=== PATIENT | female | born 2000 | race Caucasian/White ===

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

== ENCOUNTER 2021-02-07 03:45 | Emergency (ER) | payer BC, MEDICAID, SELFPAY ==
[2021-02-07] VITALS (24 sets, daily range): BP systolic 117–150; BP diastolic 52–85; PULSE 83–100; RESP 12–31; TEMP 36.7–37; O2SAT 92–100
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
[2021-02-07 03:58] LABS: Abs Immature Grans 0.08 10^3/uL (0.0-0.06); Absolute Basophil Count 0.03 10^3/uL (0.0-0.2); Absolute Eosinophil Count 0.09 10^3/uL (0.0-0.7); Absolute Lymphocyte Count 2.34 10^3/uL (1.2-3.4); Basophils % 0.3; HCT 36.8 % (36.0-46.0); HGB 11.9 g/dL (11.2-15.7); Immature Grans % 0.9; Lymphocytes % 25.6; MCH 25.3 pg (27.0-33.0); MCHC 32.3 % (32.0-36.0); MCV 78.3 fL (80-95); MPV 9.2 fL (8.0-11.0); Monocytes % 8.8; Neutrophils % 63.4; Nucleated RBC 0 %; Platelet Count 275 10^3/uL (130-400); RDW 13.9 % (11.7-14.6); RDW-SD 39.4 fL; WBC 9.14 10^3/uL (4.4-10.8)
[2021-02-07 04:07] LABS: Bilirubin Negative (Negative); Blood Negative (Negative); Clarity Sl Cloudy (Clear); Glucose Negative (Negative); Ketones Negative (Negative); Leukocyte Esterase Negative (Negative); Nitrite Negative (Negative); Specific Gravity >= 1.030 (1.005-1.025); Urobilinogen 0.2 EU/dL (Up TO 0.2); pH 5.5 (5-8)
[2021-02-07] MEDS: Lactated Ringers 1,000 ML 150 ML IV (04:10)
[2021-02-07 04:13] LABS: ALT 28 U/L (14-59); AST 24 U/L (15-37); Albumin 3.9 g/dL (3.4-5.0); Alkaline Phosphatase 74 U/L (46-116); Anion Gap 8.8 mmol/L (3-11); BUN 12 mg/dL (7-18); Bilirubin, Total 0.3 mg/dL (0.2-1.0); CO2 25.2 mmol/L (21.0-32.0); CREATININE 0.8 mg/dL (0.55-1.02); Chloride 107 mmol/L (98-107); Glucose 109 mg/dL (74-106); Potassium 3.3 mmol/L (3.5-5.1); Sodium 141 mmol/L (136-145)
[2021-02-07 04:18] LABS: *AMPHETAMINES SCREEN URINE Negative (Negative); *BARBITURATES SCREEN URINE Negative (Negative); *BENZODIAZEPINES SCREEN URINE Negative (Negative); Cannabinoids THC Negative (Negative); Cocaine Screen,Urine Negative (Negative); METHADONE URINE SCREEN Negative (Negative); OPIATES URINE SCREEN Negative (Negative)
[2021-02-07 04:19] LABS: Bacteria Few HPF (Negative); Casts 3-5 Fine Granular LPF (Negative); Crystals Negative HPF (Negative); Epithelial Cells Few HPF (Negative); Mucus Heavy (Negative); Other Cells Rare Transitional (Negative); RBC 0-2 HPF (0-2)
[2021-02-07 04:20] LABS: C & S Indicated? No
[2021-02-07 04:23] LABS: Tricyclic Antidepressants Negative (Negative)
[2021-02-07 04:23] LABS: ETHANOL BLOOD < 3.0 mg/dL (<3)
--- NOTE | 2021-02-07 04:43 | NUR.NOTE ---
Returns from radiologyNursing Note:
[2021-02-07] MEDS: Normal Saline Flush 10 ML SYR IVP (04:49)
[2021-02-07] MEDS: Normal Saline - Diluent 50 ML VIAL IV (04:49)
[2021-02-07] MEDS: Omnipaque 350 MG/ML 100 ML BTL IJ (04:49)
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
--- NOTE | 2021-02-07 05:25 | NUR.NOTE ---
Resting with eyes closed; appears sleeping. HOB elevated. No apparent distress. Side rails up x2. Call light in reach.Nursing Note:
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
[2021-02-07] MEDS: Ketorolac 30 MG/ML VIAL IVP (06:24)
== END 2021-02-07 06:57 | disposition home or self-care (01) ==
PROVIDERS: Emergency Provider Emergency Medicine; PCP Nurse Practitioner Family
DX: S22.050A Wedge compression fracture of T5-T6 vertebra, initial encounter for closed fracture (principal); S70.212A Abrasion, left hip, initial encounter; S80.211A Abrasion, right knee, initial encounter; S80.212A Abrasion, left knee, initial encounter; S40.211A Abrasion of right shoulder, initial encounter; V47.5XXA Car driver injured in collision with fixed or stationary object in traffic accident, initial encounter
CPT/HCPCS: 36415; 74177; 80053; 80307; 81025; 96361; 96374; 99285; 70450; 71260; 72125; 80320; 81003; 81015; 85025; 99284; J1885; J3490

== ENCOUNTER 2022-11-02 15:13 | Outpatient (CLI) | payer BC, MEDICAID, SELFPAY ==
--- NOTE | 2022-11-02 08:45 | DI.RAD_ITS ---
Exam(s) XR THORACIC SPINE COMPLETE EXAM: XR THORACIC SPINE COMPLETE CLINICAL HISTORY: Compression fracture of T6 vertebra, S22.050A. TECHNIQUE: 2D digital imaging was performed. Three views. COMPARISON: CT CT CHEST/ABD/PEL W from 02/07/2021 FINDINGS: BONES: There has been no change in the minimal anterior wedging noted of the T5 and T6 vertebral bodi es. Sternal wires are again noted. ALIGNMENT: Within normal limits. DISKS: Interverebral disc spaces are maintained. SOFT TISSUE: Visualized lungs are clear. IMPRESSION: Stable minimal compression fractures of T5 and T6. DATA REPOSITORY: RADIATION DOSE DELIVERED:
== END 2022-11-02 15:33 ==
PROVIDERS: PCP Family Medicine; Visit Provider Family Medicine
DX: S22.050A Wedge compression fracture of T5-T6 vertebra, initial encounter for closed fracture (principal)
CPT/HCPCS: 72072

== ENCOUNTER 2022-11-25 19:15 | Emergency (ER) | payer BC, MEDICAID, SELFPAY ==
[2022-11-25 19:22] VITALS: BP 119/81; PULSE 100; RESP 16; TEMP 37.2; O2SAT 100
[2022-11-25] MEDS: Normal Saline 1,000 ML 1000 ML IV (20:37)
[2022-11-25] MEDS: Ketorolac 15 MG/ML VIAL IVP (20:38)
[2022-11-25 20:44] LABS: Abs Immature Grans 0.07 10^3/uL (0.0-0.06); Absolute Eosinophil Count 0.03 10^3/uL (0.0-0.7); Absolute Monocyte Count 1.03 10^3/uL (0.1-0.8); Basophils % 0.3; Eosinophils % 0.2; HCT 38.9 % (36.0-46.0); HGB 12.9 g/dL (11.2-15.7); Immature Grans % 0.5; Lymphocytes % 14.9; MCH 25.3 pg (27.0-33.0); MCHC 33.2 % (32.0-36.0); MCV 76 fL (80-95); MPV 8.9 fL (8.0-11.0); Monocytes % 6.7; Neutrophils % 77.4; Platelet Count 285 10^3/uL (130-400); RBC 5.09 10^6/uL (3.93-5.22); RDW 14.4 % (11.7-14.6); RDW-SD 39.3 fL; WBC 15.41 10^3/uL (4.4-10.8)
[2022-11-25 20:45] LABS: Absolute Basophil Count 0.05 10^3/uL (0.0-0.2); Absolute Neutrophil Count 11.93 10^3/uL (1.2-6.7)
[2022-11-25 21:06] LABS: ALT 42 U/L (14-59); AST 35 U/L (15-37); Albumin 3.9 g/dL (3.4-5.0); Alkaline Phosphatase 57 U/L (46-116); Anion Gap 10.5 mmol/L (3-11); BUN 14 mg/dL (7-18); Bilirubin, Total 0.7 mg/dL (0.2-1.0); CO2 24.5 mmol/L (21.0-32.0); CREATININE 0.9 mg/dL (0.55-1.02); Chloride 103 mmol/L (98-107); Estimated GFR 93.28 (mL/min/1.73m2); Glucose 96 mg/dL (74-106); Potassium 3.9 mmol/L (3.5-5.1); Sodium 138 mmol/L (136-145); Total Protein 8.3 g/dL (6.4-8.2)
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
== END 2022-11-25 22:05 | disposition home or self-care (01) ==
PROVIDERS: Emergency Provider Nurse Practitioner Family; PCP Family Medicine
DX: L55.0 Sunburn of first degree (principal); E86.0 Dehydration
CPT/HCPCS: 80053; 96361; 96374; 99284; 81003; 85025; 99283; J1885

== ENCOUNTER 2023-09-08 18:28 | Emergency (ER) | payer BC, SELFPAY ==
[2023-09-08 18:35] VITALS: BP 158/80; PULSE 107; RESP 16; TEMP 36.7; O2SAT 99
--- NOTE | 2023-09-08 18:45 | DI.RAD_ITS ---
Exam(s) XR FOOT RT COMPLETE EXAM: XR FOOT RT COMPLETE CLINICAL HISTORY: Pain. TECHNIQUE: 2D digital imaging was performed. COMPARISON: No exams were available for comparison FINDINGS: 3 views There is soft tissue swelling of the dorsal aspect of the meta tarsals. However, there is no evidenc e of fracture or diastasis of the Lisfranc joint. Bone density normal. Articulations unremarkable. No osseous lesions. IMPRESSION: Dorsal soft tissue swelling. No acute osseous findings in the foot. DATA REPOSITORY: RADIATION DOSE DELIVERED:
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
[2023-09-08] MEDS: Ibuprofen 600 MG TAB PO (19:02)
--- NOTE | 2023-09-08 19:52 | DI.VRAD_ITS ---
PROCEDURE INFORMATION: Exam: XR Right Foot Exam date and time: 09/08/2023 7:23 PM Age: 22 years old Clinical indication: Other: Pain TECHNIQUE: Imaging protocol: Radiologic exam of the right foot. Views: 3 or more views. COMPARISON: No relevant prior studies available. FINDINGS: Bones/joints: Osseous alignment is normal. No acute fracture. No arthritic change. Soft tissues: Significant soft tissue swelling of the forefoot. No radiodense foreign body. IMPRESSION: No osseous abnormality. Soft tissue swelling of the forefoot noted Dictated and Authenticated by: Yifan Conde MD. Ordering:JEFF Alfredo MD
[2023-09-08 20:06] VITALS: BP 149/87; PULSE 97; RESP 16; O2SAT 97
== END 2023-09-08 20:11 | disposition home or self-care (01) ==
PROVIDERS: Emergency Provider Registered Nurse Emergency; PCP Family Medicine
DX: M79.671 Pain in right foot (principal)
CPT/HCPCS: 99283; 73630

== ENCOUNTER 2024-03-10 11:45 | Outpatient (CLI) | payer BC, SELFPAY ==
--- NOTE | 2024-03-10 09:11 | DI.RAD_ITS ---
Exam(s) XR KNEE RT 4V AP,LAT,PAOLA,PAT EXAM: XR KNEE RT 4V AP,LAT,PAOLA,PAT CLINICAL HISTORY: M22.8X1 other disorders of patella, rt knee--Evaluate position of patella. TECHNIQUE: 2D digital imaging was performed. Three views. COMPARISON: No exams were available for comparison FINDINGS: BONES: No acute fracture is present. No bony destructive lesion is seen. JOINTS: The knee is normally aligned. A small joint effusion is seen. Joint spaces are maintained. SOFT TISSUE: Normal. IMPRESSION: Joint effusion. Patella is normally positioned. No fracture DATA REPOSITORY: RADIATION DOSE DELIVERED:
== END 2024-03-10 12:05 ==
LOC: DI 11:49
PROVIDERS: PCP Family Medicine; Visit Provider Family Medicine
DX: M22.8X1 Other disorders of patella, right knee (principal)
CPT/HCPCS: 73564

== ENCOUNTER 2024-07-26 15:57 | Emergency (ER) | payer BC, SELFPAY ==
[2024-07-26] VITALS (32 sets, daily range): BP systolic 123–158; BP diastolic 43–107; PULSE 71–98; RESP 11–28; TEMP 36.8; O2SAT 98–100
--- NOTE | 2024-07-26 16:00 | RT.EKG_ITS ---
APPROVED REPORT Exam: Resting ECG Reason for Exam: Near syncope Patient Location: E HR:93 bpm ECG Measurements Heart Rate 93 AXIS FL 154 P 20 QRSd 97 QRS 54 QT 358 T 38 QTc 448 Conclusion Sinus rhythm, rate 93 No interval abnormalities T wave inversion V1, V2, V3 No STEMI No priors available for comparison
[2024-07-26 17:25] LABS: Influenza A PCR Negative (Negative); Influenza B PCR Negative (Negative); RSV PCR Negative (Negative)
[2024-07-26 17:33] LABS: COVID-19 PCR Positive (Negative); Source Nasopharynx
--- NOTE | 2024-07-26 17:57 | DI.RAD_ITS ---
Exam(s) XR CHEST 2V PA LATERAL EXAM: XR CHEST 2V PA LATERAL CLINICAL HISTORY: weakness. TECHNIQUE: 2D digital imaging was performed. COMPARISON: No exams were available for comparison FINDINGS: 2 views: Heart size is normal. The mediastinum is not widened. Left lung is clear. Mild increased markings in the right lung base but doubtful for infiltrate. The re are no pleural effusions. IMPRESSION: No acute pulmonary findings. DATA REPOSITORY: RADIATION DOSE DELIVERED:
[2024-07-26 17:58] LABS: Abs Immature Grans 0.02 10^3/uL (0.0-0.06); Absolute Basophil Count 0.02 10^3/uL (0.0-0.2); Absolute Eosinophil Count 0.05 10^3/uL (0.0-0.7); Absolute Lymphocyte Count 1.65 10^3/uL (1.2-3.4); Absolute Monocyte Count 0.74 10^3/uL (0.1-0.8); Absolute Neutrophil Count 3.43 10^3/uL (1.2-6.7); Basophils % 0.3 %; Eosinophils % 0.8 %; HGB 12.4 g/dL (11.2-15.7); Immature Grans % 0.3 %; Lymphocytes % 27.9 %; MCH 25.9 pg (27.0-33.0); MCHC 32.6 % (32.0-36.0); MCV 79 fL (80-95); MPV 9.7 fL (8.0-11.0); Monocytes % 12.5 %; Neutrophils % 58.2 %; Platelet Count 234 10^3/uL (130-400); RBC 4.79 10^6/uL (3.93-5.22); RDW 13.3 % (11.7-14.6); RDW-SD 38.5 fL; WBC 5.91 10^3/uL (4.4-10.8)
[2024-07-26 18:14] LABS: Bilirubin Negative (Negative); Blood Negative (Negative); Clarity Clear (Clear); Glucose Negative (Negative); Ketones Negative (Negative); Leukocyte Esterase Negative (Negative); Nitrite Negative (Negative); Specific Gravity >= 1.030 (1.005-1.025); Urobilinogen 0.2 mg/dL (Up to 0.2); pH 5.5 (5-8)
[2024-07-26 18:22] LABS: ALT 21 U/L (14-59); AST 13 U/L (15-37); Albumin 3.5 g/dL (3.4-5.0); Alkaline Phosphatase 53 U/L (46-116); Anion Gap 5.4 mmol/L (3-11); BUN 8 mg/dL (7-18); Bilirubin, Total 0.47 mg/dL (0.2-1.0); CO2 28.6 mmol/L (21.0-32.0); CREATININE 0.8 mg/dL (0.55-1.02); Calcium 8.6 mg/dL (8.5-10.1); Chloride 104 mmol/L (98-107); Estimated GFR 106.77 (mL/min/1.73m2); Glucose 97 mg/dL (74-106); NT-proBNP 35 pg/mL (<300); Potassium 3.3 mmol/L (3.5-5.1); Sodium 138 mmol/L (136-145); TSH (W/Ref FT4) 0.77 uIU/mL (0.36-3.74); Total Protein 7.7 g/dL (6.4-8.2)
[2024-07-26 18:25] LABS: Troponin I < 4 ng/L (<or=51)
[2024-07-26] MEDS: Potassium Chloride 20 MEQ TABCR 40 MEQ PO (19:41)
[2024-07-26 20:18] LABS: Troponin I < 4 ng/L (<or=51)
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
== END 2024-07-26 20:23 | disposition home or self-care (01) ==
PROVIDERS: Emergency Provider Physician Assistant; PCP Family Medicine
DX: U07.1 COVID-19 (principal); R55 Syncope and collapse
CPT/HCPCS: 80053; 81025; 82962; 87637; 93005; 99284; 71046; 81003; 83735; 83880; 84443; 84484; 85025; 93010

== ENCOUNTER 2025-01-31 21:04 | Emergency (ER) | payer BC, SELFPAY ==
[2025-01-31 21:06] VITALS: BP 150/88; PULSE 97; RESP 18; TEMP 36.6; O2SAT 100
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
[2025-01-31] MEDS: Acetaminophen 325 MG TAB 650 MG PO (22:01)
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
[2025-01-31 23:16] VITALS: BP 137/83; PULSE 77; O2SAT 100
--- NOTE | 2025-02-05 14:16 | NUR.NOTE ---
Access chart to print the demographic sheet to go with [facility] billing requisitions.Nursing Note:
== END 2025-01-31 23:38 | disposition home or self-care (01) ==
PROVIDERS: Emergency Provider Registered Nurse Emergency; PCP Family Medicine
DX: S83.92XA Sprain of unspecified site of left knee, initial encounter (principal); V49.40XA Driver injured in collision with unspecified motor vehicles in traffic accident, initial encounter
CPT/HCPCS: 99283 ×2; 81025; 73562